=== PATIENT | female | born 1970 | race Caucasian/White ===

== ENCOUNTER 2020-08-22 07:00 | Day surgery (SDC) | payer OTHER ==
[~2020-08-22] VITALS: Ht 167.6 cm; Wt 65.8 kg
[~2020-08-22 07:00] MED LIST: CARDIZEM60 MG PO; COREG CR10 MG; COREG CR20 MG; DOXYCYCLINE HY100 MG PO; TYLENOL-CODEINE1 TAB PO
[2020-08-22] MEDS ORDERED: DEXILANT60 MG PO (11:22)
[2020-08-23] MEDS ORDERED: Tylenol #3 PO (08:38)
== END 2020-08-23 08:00 | disposition home or self-care (01) ==
LOC: SURH 07:00 → CIR.AMB 07:00 → SURH 10:00 → EDSTATUS 10:00 → O/R 12:06 → OB/GYN 12:06 → O/R 12:06 → SURG-SUITE 14:18 → OB/GYN 14:18 → CIR.AMB 08-23 08:00 → SURG-SUITE 08-23 09:43
PROVIDERS: ATTEND Obstetrics & Gynecology
DX: D25.1 Intramural leiomyoma of uterus (principal); D25.0 Submucous leiomyoma of uterus; N81.11 Cystocele, midline; N92.0 Excessive and frequent menstruation with regular cycle; N72 Inflammatory disease of cervix uteri; N83.292 Other ovarian cyst, left side; N83.291 Other ovarian cyst, right side; N80.0 Endometriosis of uterus